=== PATIENT | male | born 1950 | race Caucasian/White ===

== ENCOUNTER 2021-03-17 20:27 | Observation (INO) | payer MEDICARE, SELFPAY ==
[2021-03-17] VITALS (12 sets, daily range): BP systolic 109–152; BP diastolic 56–78; PULSE 69–87; RESP 16–25; O2SAT 93–98
--- NOTE | 2021-03-17 20:43 | DI.RAD.S_ITS ---
PROCEDURE: XR CHEST 1V INDICATIONS: chest pain TECHNIQUE: One view of the chest was acquired. COMPARISON: None. FINDINGS: Surgical changes and devices: Sternotomy wires, presumed prior CABG.. Lungs and pleura: Lungs are clear. No pleural effusions or pneumothorax. Mediastinum: Mediastinal contours appear normal. Heart size is normal. Bones and chest wall: No suspicious bony lesions. Overlying soft tissues appear unremarkable. IMPRESSION: Mildly reduced inspiratory volume, prior sternotomy wires, presumed prior CABG, no definite acute disease. Dictated by: Richy Bran M.D. on 03/17/2021 at 21:30 Approved by: Richy Bran M.D. on 03/17/2021 at 21:31
[2021-03-17 20:57] LABS: Add Manual Diff / Slide Review NO; Basophils Absolute Auto 100 /uL (0-100); Basophils Percent Auto 0.5 % (0-2); Eosinophils Absolute Auto 200 /uL (0-450); Eosinophils Percent Auto 1.7 % (2-4); Hematocrit 45.6 % (41-53); Hemoglobin 15.4 g/dL (13.5-17.5); Lymphocytes Absolute Auto 2200 /uL (1100-4500); Lymphocytes Percent Auto 16.2 % (25-40); Mean Corpuscular HGB Conc 33.8 % (30-36); Mean Corpuscular Hemoglobin 31.2 PG (26-34); Mean Corpuscular Volume 92.3 fL (80-100); Monocytes Absolute Auto 1200 /uL (0-900); Monocytes Percent Auto 8.9 % (3-14); Neutrophils Absolute Auto 10000 /uL (1500-7000); Neutrophils Percent Auto 72.7 % (50-75); Platelet Count 226 X10^3/uL (150-400); Red Blood Cell Count 4.94 X10^6/uL (4.5-5.9); Red Cell Distribution Width 13.6 % (11.6-14.8); White Blood Cell Count 13.8 X10^3/uL (4.5-11.0)
[2021-03-17 21:02] LABS: Alanine Aminotransferase 31 IU/L (<50); Albumin 4.2 g/dL (3.5-5.0); Albumin Globulin Ratio 1.5 (1.0-2.8); Alkaline Phosphatase 83 U/L (38-126); Aspartate Aminotransferase 47 IU/L (17-59); BUN Creatinine Ratio 21.1 (6-22); Bilirubin Total 0.6 mg/dL (0.2-1.3); Blood Urea Nitrogen 20 mg/dL (9-20); Calcium 9.3 mg/dL (8.4-10.2); Carbon Dioxide 27 mmol/L (22-32); Chloride 105 mmol/L (98-107); Creatine Kinase 196 U/L (55-170); Estimated Glomerular Filt Rate > 60.0 mL/min (>60); Globulin 2.8 g/dL (1.7-4.1); Glucose 115 mg/dL (80-110); Lipase 74 U/L (23-300); Potassium 3.8 mmol/L (3.4-5.1); Sodium 140 mmol/L (137-145)
[2021-03-17 21:14] LABS: Troponin I < 0.012 ng/mL (0.01-0.034)
[2021-03-17 21:18] LABS: CKMB % Relative Index 2.3 % (1.5-5.0); Creatine Kinase MB 4.51 ng/mL (<2.37); HEMOLYSIS < 15 (0-50)
[2021-03-17] MEDS: NITROGLYCERIN 0.4 MG SL TAB SL ×3 (21:42→21:59)
--- NOTE | 2021-03-17 22:15 | ED.CHESTPAIN ---
HPI - Chest Pain General Chief Complaint: Chest Pain Stated Complaint: CHEST PAIN Time Seen by Provider: 03/17/21 20:47 Source: patient and family Mode of arrival: Ambulatory History of Present Illness HPI narrative: Patient is a 71-year-old male is here for chest discomfort. He states that his chest discomfort started at approximately 0500 hours in the afternoon. He was sitting on the couch when her. Earlier in the day he was having some jaw pain. He states he has never had discomfort like this in the past. He does describe it as a pressure. Does not get worse with palpation or movement however does get worse when he takes a deep breath. He also has upper back pain. He did take 2 full-strength aspirins prior to arrival. His of a prior history of an ASD repair. Has never had a heart attack before. Not on blood thinners. Related Data Home Medications Medication Instructions Recorded Confirmed [OXYCODONE] 5 mg PO PRN PRN #0 MDD 3 05/03/11 03/18/21 [COQ 10 ] 100 mg PO DAILY #0 10/27/12 03/18/21 aspirin 325 mg tablet 325 mg PO DAILY PRN #0 10/27/12 03/18/21 atorvastatin 20 mg tablet (Lipitor) 20 mg PO HS #0 10/27/12 03/18/21 ibuprofen 200 mg capsule 200 mg PO PRN PRN #0 10/27/12 03/18/21 gabapentin 300 mg capsule 300 mg PO QPM 03/18/21 03/18/21 lisinopril 10 mg tablet 10 mg PO DAILY 03/18/21 03/18/21 Allergies Allergy/AdvReac Type Severity Reaction Status Date / Time No Known Drug Allergies Allergy Verified 03/18/21 02:17 Review of Systems Constitutional Constitutional: Denies fever(s) and Denies headache(s) Eyes Eyes: Reports system reviewed and no additional complaints, except as documented ENT Ears, Nose, Mouth, and Throat: Denies headache(s) Cardiovascular Cardiovascular: Reports as per HPI Respiratory Respiratory: Reports as per HPI Gastrointestinal Gastrointestinal: Reports system reviewed and no additional complaints, except as documented Genitourinary Genitourinary: Reports system reviewed and no additional complaints, except as documented Musculoskeletal Musculoskeletal: Reports back pain Integumentary/Breasts Skin/Breast: Reports system reviewed and no additional complaints, except as documented Neurologic Neurologic: Denies headache(s) Psychiatric Psychiatric: Reports system reviewed and no additional complaints, except as documented Hematologic/Lymphatic On Anticoagulants: No Patient History Medical History Essential hypertension HLD (hyperlipidemia) Hyperlipidemia Opioid abuse, continuous use Surgical History History of lumbar laminectomy History of right knee joint replacement Hx of atrial septal defect repair Family History Mother Myocardial infarction Father Pancreatic cancer Social History household members: spouse Smoking Status: Never smoker alcohol intake: never Smoking Status: Never smoker Substance Use Type: does not use Exam Initial Vital Signs Initial Vital Signs: Vital Signs Pulse Rate 82 03/17/21 20:27 Respiratory Rate 16 03/17/21 20:27 Blood Pressure 152/72 H 03/17/21 20:27 Pulse Oximetry 98 03/17/21 20:27 Const General: cooperative and healthy appearing [facility] Head: normal to inspection and normocephalic Eyes General: appearance normal, both eyes and all related structures Neck Neck: normal visual inspection Resp Effort & Inspection: normal respiratory effort Auscultation: clear to auscultation bilaterally Cardio Rate: regular rate Rhythm: regular rhythm GI Inspection: normal to inspection Palpation: soft Back/Spine/Pelvis Thoracic/Lumbar Spine: No thoracic spinal tenderness Skin General: no rashes or lesions noted Neuro General: patient alert, patient awake, patient oriented x3 and moves all extremities Extrem General: normal to inspection and capillary refill normal Psych Appearance: grossly normal and well kempt Scores GCS Sloane coma scale eye opening: Spontaneous Sloane coma scale verbal response: Orientated Paragon coma scale motor response: Obey commands Sloane coma scale total score: 15 HEART Score Heart Score history: Slightly Suspicious Heart Score EKG: Non-Specific repolarization disturbance Heart Score Age: > or = 65 years old Heart Score risk factors: 1-2 risk factors Heart Score troponin: < or = to normal limit Heart Score Total: 4 Course Orders Ordered: ED Orders 03/17/21 20:11 Complete Blood Count AUTO DIFF Stat Comprehensive Metabolic Panel Stat Lipase Stat Troponin & CK Cardiac Panel Stat 03/17/21 20:43 XR chest 1V Stat EKG-12 Lead Stat 03/17/21 23:19 Troponin & CK Cardiac Panel Stat 03/18/21 00:20 COVID19 - ADMIT ([employer] swab/PCR) Stat Acetaminophen (Acetaminophen 325 Mg Tablet) 650 mg PO Q6HR PRN PRN Reason: Fever/Mild Pain (1-3) Aspirin (Aspirin Ec 81 Mg Tablet) 81 mg PO DAILY [facility] Atorvastatin Calcium (Atorvastatin 20 Mg Tablet) 80 mg PO BEDTIME [facility] Last Admin: 03/18/21 03:02 Dose: 80 mg Documented by: ZENAIDA Enoxaparin Sodium (Enoxaparin 40 Mg/0.4 Ml Syringe) 40 mg SUBCUT DAILY [facility] Gabapentin (Gabapentin 300 Mg Capsule) 300 mg PO BEDTIME [facility] [place] Sodium Chloride (Normal Saline 0.9%) 1,000 mls @ 100 mls/hr IV CONT [facility] Last Admin: 03/18/21 03:08 Dose: 100 mls/hr Documented by: ZENAIDA Lisinopril (Lisinopril 10 Mg Tablet) 10 mg PO DAILY [facility] Morphine Sulfate (Morphine 2 Mg/Ml Inj) 2 mg IV Q5MIN PRN PRN Reason: Chest Pain Naloxone HCl (Naloxone 0.4 Mg/Ml Vial) 0.2 mg IV Q2MIN PRN PRN Reason: Opiate Reversal Nitroglycerin (Nitroglycerin 0.4 Mg Sl Tab) 0.4 mg SL [id number] PRN PRN Reason: Chest Pain Ondansetron HCl (Ondansetron 4 Mg/2 Ml Inj) 4 mg IV Q8HR PRN PRN Reason: Nausea And Vomiting Oxycodone HCl (Oxycodone Ir 10 Mg Tablet) 10 mg PO Q6HR PRN PRN Reason: Pain, Severe (7-10) Discontinued Medications Gabapentin (Gabapentin 300 Mg Capsule) 300 mg PO QPM [facility] [place] Lisinopril (Lisinopril 20 Mg Tablet) 20 mg PO DAILY [facility] [place] Nitroglycerin (Nitroglycerin 0.4 Mg Sl Tab) 0.4 mg SL [id number] PRN PRN Reason: Chest Pain Last Admin: 03/17/21 21:59 Dose: 0.4 mg Documented by: Admin: 03/17/21 21:49 Dose: 0.4 mg Documented by: Admin: 03/17/21 21:42 Dose: 0.4 mg Documented by: KGALLAG Vital Signs Vital signs: Vital Signs - 8 hr 03/17/21 20:27 03/17/21 20:50 03/17/21 21:00 Pulse Rate 82 81 84 Respiratory Rate 16 18 22 Blood Pressure 152/72 H Pulse Oximetry 98 97 96 03/17/21 21:30 03/17/21 22:00 03/17/21 22:15 Pulse Rate 74 76 79 Respiratory Rate 21 18 25 H Blood Pressure 135/72 128/64 135/72 Pulse Oximetry 94 96 96 03/17/21 22:30 03/17/21 22:45 03/17/21 23:00 Pulse Rate 69 72 81 Respiratory Rate 22 21 23 Blood Pressure 128/71 126/69 136/78 Pulse Oximetry 97 96 96 03/17/21 23:15 03/17/21 23:30 03/17/21 23:45 Pulse Rate 81 84 87 Respiratory Rate 20 20 18 Blood Pressure 113/58 L 115/56 L 109/59 L Pulse Oximetry 94 95 93 03/18/21 00:00 03/18/21 00:15 Pulse Rate 90 90 Respiratory Rate 18 17 Blood Pressure 100/55 L 97/54 L Pulse Oximetry 93 93 MDM - Chest Pain Lab Data Attestation: I reviewed the patient's lab results. Result diagrams: 03/17/21 20:11 03/17/21 20:11 Labs: Lab Results 03/17/21 03/17/21 03/17/21 Range/Units 20:11 20:11 22:19 WBC 13.8 H (4.5-11.0) X10^3/uL RBC 4.94 (4.5-5.9) X10^6/uL Hgb 15.4 (13.5-17.5) g/dL Hct 45.6 (41-53) % MCV 92.3 (80-100) fL MCH 31.2 (26-34) PG MCHC 33.8 (30-36) % RDW 13.6 (11.6-14.8) % Plt Count 226 (150-400) X10^3/uL Neut % (Auto) 72.7 (50-75) % Lymph % (Auto) 16.2 L (25-40) % [place] % (Auto) 8.9 (3-14) % Eos % (Auto) 1.7 L (2-4) % Baso % (Auto) 0.5 (0-2) % Neut # (Auto) 68955 H (4585-1596) /uL Lymph # (Auto) 2200 (7580-8327) /uL [place] # (Auto) 1200 H (0-900) /uL Eos # (Auto) 200 (0-450) /uL Baso # (Auto) 100 (0-100) /uL Sodium 140 (137-145) mmol/L Potassium 3.8 (3.4-5.1) mmol/L Chloride 105 (98-107) mmol/L Carbon Dioxide 27 (22-32) mmol/L BUN 20 (9-20) mg/dL Creatinine 0.95 (0.66-1.25) mg/dL Estimated GFR > 60.0 (>60) mL/min BUN/Creatinine Ratio 21.1 (6-22) Glucose 115 H (80-110) mg/dL Hemoglobin A1c (4.0-6.0) % Calcium 9.3 (8.4-10.2) mg/dL Magnesium 2.0 (1.6-2.3) mg/dL Total Bilirubin 0.6 (0.2-1.3) mg/dL AST 47 (17-59) IU/L ALT 31 (<50) IU/L Alkaline Phosphatase 83 (38-126) U/L Total Creatine Kinase 196 H (55-170) U/L CK-MB (CK-2) 4.51 H (<2.37) ng/mL CK-MB (CK-2) Rel Index 2.3 (1.5-5.0) % Troponin I < 0.012 (0.01-0.034) ng/mL Total Protein 7.0 (6.3-8.2) g/dL Albumin 4.2 (3.5-5.0) g/dL Globulin 2.8 (1.7-4.1) g/dL Albumin/Globulin Ratio 1.5 (1.0-2.8) Lipase 74 (23-300) U/L Procalcitonin (<0.5) ng/mL SARS-CoV-2 (PCR) (Negative) 03/17/21 03/17/21 03/17/21 Range/Units 22:19 22:19 23:19 WBC (4.5-11.0) X10^3/uL RBC (4.5-5.9) X10^6/uL Hgb (13.5-17.5) g/dL Hct (41-53) % MCV (80-100) fL MCH (26-34) PG MCHC (30-36) % RDW (11.6-14.8) % Plt Count (150-400) X10^3/uL Neut % (Auto) (50-75) % Lymph % (Auto) (25-40) % [place]ilion % (Auto) (3-14) % Eos % (Auto) (2-4) % Baso % (Auto) (0-2) % Neut # (Auto) (5176-1084) /uL Lymph # (Auto) (1786-4096) /uL [place] # (Auto) (0-900) /uL Eos # (Auto) (0-450) /uL Baso # (Auto) (0-100) /uL Sodium (137-145) mmol/L Potassium (3.4-5.1) mmol/L Chloride (98-107) mmol/L Carbon Dioxide (22-32) mmol/L BUN (9-20) mg/dL Creatinine (0.66-1.25) mg/dL Estimated GFR (>60) mL/min BUN/Creatinine Ratio (6-22) Glucose (80-110) mg/dL Hemoglobin A1c 5.5 (4.0-6.0) % Calcium (8.4-10.2) mg/dL Magnesium (1.6-2.3) mg/dL Total Bilirubin (0.2-1.3) mg/dL AST (17-59) IU/L ALT (<50) IU/L Alkaline Phosphatase (38-126) U/L Total Creatine Kinase 157 (55-170) U/L CK-MB (CK-2) 3.48 H (<2.37) ng/mL CK-MB (CK-2) Rel Index 2.2 (1.5-5.0) % Troponin I < 0.012 (0.01-0.034) ng/mL Total Protein (6.3-8.2) g/dL Albumin (3.5-5.0) g/dL Globulin (1.7-4.1) g/dL Albumin/Globulin Ratio (1.0-2.8) Lipase (23-300) U/L Procalcitonin 0.07 (<0.5) ng/mL SARS-CoV-2 (PCR) (Negative) 03/18/21 Range/Units 00:20 WBC (4.5-11.0) X10^3/uL RBC (4.5-5.9) X10^6/uL Hgb (13.5-17.5) g/dL Hct (41-53) % MCV (80-100) fL MCH (26-34) PG MCHC (30-36) % RDW (11.6-14.8) % Plt Count (150-400) X10^3/uL Neut % (Auto) (50-75) % Lymph % (Auto) (25-40) % Vermilion % (Auto) (3-14) % Eos % (Auto) (2-4) % Baso % (Auto) (0-2) % Neut # (Auto) (9712-2041) /uL Lymph # (Auto) (0166-7295) /uL [place]ilion # (Auto) (0-900) /uL Eos # (Auto) (0-450) /uL Baso # (Auto) (0-100) /uL Sodium (137-145) mmol/L Potassium (3.4-5.1) mmol/L Chloride (98-107) mmol/L Carbon Dioxide (22-32) mmol/L BUN (9-20) mg/dL Creatinine (0.66-1.25) mg/dL Estimated GFR (>60) mL/min BUN/Creatinine Ratio (6-22) Glucose (80-110) mg/dL Hemoglobin A1c (4.0-6.0) % Calcium (8.4-10.2) mg/dL Magnesium (1.6-2.3) mg/dL Total Bilirubin (0.2-1.3) mg/dL AST (17-59) IU/L ALT (<50) IU/L Alkaline Phosphatase (38-126) U/L Total Creatine Kinase (55-170) U/L CK-MB (CK-2) (<2.37) ng/mL CK-MB (CK-2) Rel Index (1.5-5.0) % Troponin I (0.01-0.034) ng/mL Total Protein (6.3-8.2) g/dL Albumin (3.5-5.0) g/dL Globulin (1.7-4.1) g/dL Albumin/Globulin Ratio (1.0-2.8) Lipase (23-300) U/L Procalcitonin (<0.5) ng/mL SARS-CoV-2 (PCR) Negative (Negative) Imaging Data Chest x-ray: Radiologist's Impression: [address] [id number] ReportSigned Patient: Reynaldo Wu AMR#: [id number]: 1950cct:[id number]/Sex: 71 / MDate of Service: 03/17/21Loc: EDAccession Number: [id number] Procedure: XR chest 1V Ordering Provider: Reynaldo Mota D.O. PROCEDURE: XR CHEST 1V INDICATIONS: chest pain TECHNIQUE: One view of the chest was acquired. COMPARISON: None. FINDINGS: Surgical changes and devices: Sternotomy wires, presumed prior CABG.. Lungs and pleura: Lungs are clear. No pleural effusions or pneumothorax. Mediastinum: Mediastinal contours appear normal. Heart size is normal. Bones and chest wall: No suspicious bony lesions. Overlying soft tissues appear unremarkable. IMPRESSION: Mildly reduced inspiratory volume, prior sternotomy wires, presumed prior CABG, no definite acute disease. Dictated by: Richy Bran M.D. on 03/17/2021 at 21:30 Approved by: Richy Bran M.D. on 03/17/2021 at 21:31 ECG Data Attestation: I personally reviewed and interpreted this ECG as follows: Interpretation: Sinus rhythm Ventricular rate is 79 [place] Normal QRS Right bundle branch block QTC Nonspecific ST T wave changes MDM Narrative Medical decision making narrative: Chest x-ray shows no acute pathology. Has nonspecific changes on the EKG. Does have a leukocytosis but is afebrile. No indication for antibiotics here in the emergency department. Troponins negative x2. Does have a heart score of 4. Had a discussion with him regarding either discharge home and follow-up as an outpatient to obtain his stress test or be admitted to the hospital for further risk stratification. Patient opted to be admitted to the hospital. Discussed case with jatinder mcallister the night Hospital provider who will admit for further evaluation treatment. Discharge Plan Departure Patient Disposition: Admitted as Observation Clinical Impression: Chest pain Admit Date/Time: 03/18/21 00:24 Admit Provider: Yue Mcallister
[2021-03-17 23:37] LABS: Creatine Kinase 157 U/L (55-170)
[2021-03-17 23:50] LABS: Troponin I < 0.012 ng/mL (0.01-0.034)
[2021-03-17 23:53] LABS: CKMB % Relative Index 2.2 % (1.5-5.0); Creatine Kinase MB 3.48 ng/mL (<2.37)
[2021-03-18] VITALS (8 sets, daily range): BP systolic 97–151; BP diastolic 54–88; PULSE 80–92; RESP 16–21; TEMP 36–37.3; O2SAT 93–97; BMI 26.6
[2021-03-18 01:20] LABS: COVID19 - ADMIT (NP swab/PCR) Negative (Negative)
--- NOTE | 2021-03-18 01:31 | DI.CT.S_ITS ---
PROCEDURE: CT ANGIO CHEST ABDOMEN PELVIS INDICATIONS: hx asd, A/P pain dissection protocol TECHNIQUE: Precontrast 5 mm thick sections acquired from the lung apices to the iliac crests. After the administration of intravenous contrast, 2.5 mm thick sections again acquired from the lung apices to the iliac crests. Maximum intensity projection (MIP) oblique sagittal and coronal reformats were then acquired. For radiation dose reduction, the following was used: automated exposure control. COMPARISON: None. FINDINGS: CHEST: Lungs: Scattered subsegmental atelectasis and/or scarring. No focal consolidation. Pleura: No pleural effusions or pneumothorax. Heart: 5 mm pericardial effusion. Scattered coronary artery calcifications, moderate. Chest nodes: Normal. Thyroid gland: Normal. Aorta: Normal in size. Scattered vascular calcifications. No evidence of dissection. Pulmonary arteries: Normal. No discrete intraluminal filling defects. Esophagus: Normal. ABDOMEN: Liver: Subcentimeter hepatic foci are statistically cysts or hemangiomas, although technically too small to characterize accurately and therefore nonspecific. Gallbladder: Normal. Bile ducts: Normal. Pancreas: Normal. Spleen: Normal. Adrenals: Normal. Kidneys and ureters: Subcentimeter renal foci, statistically cysts, although technically too small to characterize accurately and therefore nonspecific. No hydronephrosis. Ureters appear decompressed. Stomach and duodenum: Normal. Bowel: Normal. Normal appendix. Other: No free fluid or air. Abdominal nodes: Normal. Aorta and IVC: No evidence of aortic dissection. No aneurysm identified. Scattered vascular calcifications are present. No evidence of periaortic hemorrhage. Ventral wall: Small fat containing periumbilical hernia. PELVIS: Bladder: Normal. Inguinal region: No hernia. Pelvic nodes: Normal. Bones: Multilevel degenerative endplate sclerosis and spurring. Diffuse facet arthropathy. Numerous scattered small Schmorl's nodes. Posterior spinal fixation hardware seen in lumbar spine. Mild anterior wedging of the midthoracic vertebral bodies, age indeterminate. IMPRESSION: No evidence of aortic dissection, aneurysm or periaortic hemorrhage. Moderate atherosclerotic disease. Small pericardial effusion Additional chronic and incidental findings as above. Findings concordant with preliminary study interpretation. Dictated by: Sebastian Ballard M.D. on 03/18/2021 at 8:07 Approved by: Sebastian Ballard M.D. on 03/18/2021 at 8:24
--- NOTE | 2021-03-18 01:39 | DI.ECHO.S_ITS ---
[facility]---------+ [facility] +---------+ : : [address] : : : : [id number] : : : : Phone: [phone] Echocardiogram Report + + :Name: SEE VARGHESE Study Date: 03/18/2021 Height: 70 in : :[facility] ReadingLocation: Weight: 186 lb: : Gender: Male BSA: 2.0 m2 : :: 1950 Age: 71 yrs BP: 97/54 mmHg: :Reason For Study: CHEST PAIN, HISTORY OF ASD CLOSURE : :Ordering Physician: MARC CUNNINGHAM Performed By: Kiera Torres : :Referring: NIHARIKA CUNNINGHAM : + + Interpretation Summary Normal left ventricle size with ejection fraction 65-70%. Mild to moderately dilated right ventricle with normal right ventricular systolic function. No signficant valvular abnormality. The interatrial septum appears intact with no evidence for an atrial septal defect. Comparison is made with the echocardiogram of 10/20/2017, there has been no significant change. Procedure: A two-dimensional transthoracic echocardiogram with color flow and Doppler was performed. The study quality was technically adequate. Comparison is made with the echocardiogram of 10/20/2017. The patient was in sinus rhythm with heart rates between 83-90 bpm during the exam. Left Ventricle: The left ventricle is normal in size and wall thickness. The ejection fraction is estimated to be 65-70%. There are no focal wall motion abnormalities. Right Ventricle: The right ventricle is mild to moderately dilated. The right ventricular systolic function is normal. Atria: The left atrial size is normal. Right atrial size is normal. History of ASD closure. The interatrial septum grossly appears intact with no obvious evidence for an atrial septal defect. Mitral Valve: The mitral valve is normal in structure and function. The mitral valve leaflets appear borderline thickened, but open well. There is trace mitral regurgitation. Aortic Valve: The aortic valve is trileaflet. The aortic valve opens well. There is no aortic valve stenosis. No aortic regurgitation is present. Tricuspid Valve: The tricuspid valve is normal in structure and function. There is mild tricuspid regurgitation. The right ventricular systolic pressure is estimated to be at least 26 mmHg based on an estimated right atrial pressure of 3 mm Hg. Pulmonic Valve: The pulmonic valve leaflets are thin and pliable; valve motion is normal. There is trace pulmonic regurgitation. Great Vessels: The aortic root is mildly dilated. The aortic arch is mildly enlarged. The IVC is of normal diameter and collapses greater than 50% with a sniff. This suggests a low right atrial pressure of 3 mm Hg. Pericardium/ Pleura There is no pericardial effusion. There is no pleural effusion. MMode/2D Measurements & Calculations LVIDd: 5.0 cm LVOT diam: 2.1 cm LVIDs: 3.2 cm Ao root diam: 3.9 cm FS: 35.5 % asc Aorta Diam: 3.7 cm IVSd: 0.86 cm LVPWd: 0.90 cm LV tavera. diameter/BSA (cm/m^2): 2.5 LV sys. diameter/BSA (cm/m^2): 1.6 LA A2 area: 18.0 cm2 RA long axis: 5.7 cm LA A4 area: 21.8 cm2 RA area: 20.7 cm2 LA length (vol): 6.3 cm RA vol: 64.3 ml LA vol: 52.9 ml RA : 31.8 ml/m2 LA vol index: 26.1 ml/m2 IVC diam: 1.7 cm TAPSE: 1.8 cm Doppler Measurements & Calculations Ao V2 max: 127.8 cm/sec LVOT Max Edilberto: 124.4 cm/sec Ao V2 mean: 96.5 cm/sec LV V1 max P.2 mmHg Ao max P.5 mmHg LV V1 VTI: 22.8 cm Ao mean P.1 mmHg BHUPINDER(I,D): 3.6 cm2 Ao V2 VTI: 22.4 cm BHUPINDER(V,D): 3.4 cm2 sev ratio: 1.0 BHUPINDER indexed to BSA (cm^2/m^2): 1.8 MV E max edilberto: 66.9 cm/sec TR max edilberto: 239.6 cm/sec MV A max edilberto: 71.8 cm/sec TR max P.0 mmHg MV E/A: 0.93 PA V2 max: 84.9 cm/sec Med Peak E' Edilberto: 7.4 cm/sec PA V2 mean: 61.6 cm/sec E/E' med: 9.0 PA mean P.7 mmHg Lat Peak E' Edilberto: 7.9 cm/sec PA pr(Accel): 25.9 mmHg E/E' lat: 8.5 E/e' average: 8.8 MV dec time: 0.17 sec SV(LVOT): 79.9 ml Electronically signed by: Keyla Gandara on Reading Physician:03/18/2021 10:49 AM
--- NOTE | 2021-03-18 01:51 | P.HP_ITS ---
History of Present Illness History of Present Illness Date Patient Seen: 03/18/21 Time Patient Seen: 01:15 Chief complaint: CHEST PAIN Narrative: Reynaldo Wu is a 71 y.o. male with hypertension, hyperlipidemia, a remote history of an ASD repair in 1985, and chronic back from lumbar surgeries in 2010 and 2012, presented with bilateral jaw pain he initially thought was due to dental crown work he is having followed but retrosternal chest pain. He is in between his tooth prep and setting of the permanent crown, so has been having jaw pain. He stated he was walking in his usual state of health and found it hard to breath without having chest pain, aggrevated by deep breathing. He took two full strength aspirins followed by ibuprofen. In the emergency department, he was administered 2 doses of nitro and states his chest pain while still present, improved. He denies headaches, lightheadedness, difficulty swallowing, shortness of breath, nausea or vomiting, dysurea, diarrhea, does have constipation from taking oxycodone, and has mild numbness and weakness of his left leg and foot he attributes to his back surgery. Two troponins drawn in the ED were negative, chest xray was negative with a finding of presence of sternotomy wires, EKG indicated a right bundle branch block that was also present in October 2012. Patient has low-grade temperature of 99.1?, blood pressure 151/88, heart rate 83, respiratory rate 16, oxygen saturation 97% on room air, he weighs 84.4 kg with a BMI of 26.6. Is a mildly elevated WBC at 13.8, the rest of the CBC is within normal limits, glucose mildly elevated at 115 with an A1c of 5.5, liver enzymes within normal limits, COVID-19 PCR is negative. Procalcitonin pending. Patient History Medical History Essential hypertension HLD (hyperlipidemia) Hyperlipidemia Opioid abuse, continuous use Surgical History History of lumbar laminectomy History of right knee joint replacement Hx of atrial septal defect repair Family & Social History Family History Mother Myocardial infarction Father Pancreatic cancer Social History: household members spouse Prior Living Arrangements House Safety & Behavioral: Feels Safe in Current Yes Environment Been Physically Hurt or No Threatened By a Person Suicidal Ideation Description None Suicide Plan Description No Plan Tobacco & Substance use: Smoking Status Never smoker alcohol intake never Substance Use Type does not use Meds Home Medications and Allergies Home Medications Medication Instructions Recorded Confirmed Type [OXYCODONE] 5 mg PO PRN PRN #0 MDD 3 05/03/11 03/18/21 History [COQ 10 ] 100 mg PO DAILY #0 10/27/12 03/18/21 History aspirin 325 mg tablet 325 mg PO DAILY PRN #0 10/27/12 03/18/21 History atorvastatin 20 mg tablet (Lipitor) 20 mg PO HS #0 10/27/12 03/18/21 History ibuprofen 200 mg capsule 200 mg PO PRN PRN #0 10/27/12 03/18/21 History gabapentin 300 mg capsule 300 mg PO QPM 03/18/21 03/18/21 History lisinopril 10 mg tablet 10 mg PO DAILY 03/18/21 03/18/21 History Allergies Allergy/AdvReac Type Severity Reaction Status Date / Time No Known Drug Allergies Allergy Verified 03/18/21 02:17 Review of Systems Review of Systems ROS: Yes All systems reviewed with the patient and are negative except as otherwise documented Exam Vital Signs (past 8 hours): - 03/17/21 20:27 03/17/21 20:50 03/17/21 21:00 Temperature Pulse Rate 82 81 84 Respiratory Rate 16 18 22 Blood Pressure 152/72 H Pulse Oximetry 98 97 96 03/17/21 21:30 03/17/21 22:00 03/17/21 22:15 Temperature Pulse Rate 74 76 79 Respiratory Rate 21 18 25 H Blood Pressure 135/72 128/64 135/72 Pulse Oximetry 94 96 96 03/17/21 22:30 03/17/21 22:45 03/17/21 23:00 Temperature Pulse Rate 69 72 81 Respiratory Rate 22 21 23 Blood Pressure 128/71 126/69 136/78 Pulse Oximetry 97 96 96 03/17/21 23:15 03/17/21 23:30 03/17/21 23:45 Temperature Pulse Rate 81 84 87 Respiratory Rate 20 20 18 Blood Pressure 113/58 L 115/56 L 109/59 L Pulse Oximetry 94 95 93 03/18/21 00:00 03/18/21 00:15 03/18/21 00:30 Temperature Pulse Rate 90 90 80 Respiratory Rate 18 17 21 Blood Pressure 100/55 L 97/54 L 120/69 Pulse Oximetry 93 93 94 03/18/21 00:50 Temperature 99.1 F Pulse Rate 83 Respiratory Rate 16 Blood Pressure 151/88 H Pulse Oximetry 97 Oxygen Delivery Method Room Air Oxygen Flow Rate 0 Narrative Exam Narrative: Gen: Alert, oriented, well-developed 71 y.o. male, slightly uncomfortable appearing HEENT: normocephalic, atraumatic, conjunctiva clear, sclera non-icteric, oral mucosa pink and moist Neck: supple, full ROM, no JVD, trachea is midline Resp: Lungs CTA, non-labored breathing CV: RRR, no murmur or rubs Abd: soft, non-tender, normoactive BTs Skin: [place] complected, no lesions or rashes, dry and intact Neuro: Alert and oriented X 4 w/no focal deficits. Speech clear and coherent. Extremities: moves all 4 extremities, is ambulatory, negative Katharine?s sign Psyche: normal mood and affect. Objective Labs Result Diagrams: 03/17/21 20:11 03/17/21 20:11 Labs: Laboratory Results - last 24 hr 03/17/21 03/17/21 03/17/21 20:11 20:11 23:19 WBC 13.8 H RBC 4.94 Hgb 15.4 Hct 45.6 MCV 92.3 MCH 31.2 MCHC 33.8 RDW 13.6 Plt Count 226 Neut % (Auto) 72.7 Lymph % (Auto) 16.2 L [place] % (Auto) 8.9 Eos % (Auto) 1.7 L Baso % (Auto) 0.5 Neut # (Auto) 50824 H Lymph # (Auto) 2200 [place] # (Auto) 1200 H Eos # (Auto) 200 Baso # (Auto) 100 Sodium 140 Potassium 3.8 Chloride 105 Carbon Dioxide 27 BUN 20 Creatinine 0.95 Estimated GFR > 60.0 BUN/Creatinine Ratio 21.1 Glucose 115 H Calcium 9.3 Total Bilirubin 0.6 AST 47 ALT 31 Alkaline Phosphatase 83 Total Creatine Kinase 196 H 157 CK-MB (CK-2) 4.51 H 3.48 H CK-MB (CK-2) Rel Index 2.3 2.2 Troponin I < 0.012 < 0.012 Total Protein 7.0 Albumin 4.2 Globulin 2.8 Albumin/Globulin Ratio 1.5 Lipase 74 SARS-CoV-2 (PCR) 03/18/21 00:20 WBC RBC Hgb Hct MCV MCH MCHC RDW Plt Count Neut % (Auto) Lymph % (Auto) [place] % (Auto) Eos % (Auto) Baso % (Auto) Neut # (Auto) Lymph # (Auto) [place] # (Auto) Eos # (Auto) Baso # (Auto) Sodium Potassium Chloride Carbon Dioxide BUN Creatinine Estimated GFR BUN/Creatinine Ratio Glucose Calcium Total Bilirubin AST ALT Alkaline Phosphatase Total Creatine Kinase CK-MB (CK-2) CK-MB (CK-2) Rel Index Troponin I Total Protein Albumin Globulin Albumin/Globulin Ratio Lipase SARS-CoV-2 (PCR) Negative Assessment & Plan Assessment & Plan narrative: Reynaldo Wu is placed into observation overnight in order to undergo further evaluation of his chest pain. Retrosternal chest pain r/o ACS, acute, present on admission * CT chest, abdomen and pelvis given his chest pain appears to be atypical of ACS, to rule out dissection was negative for an acute process * Echo in am * Pharmacological stress test * Start ASA 81 mg * Received nitro X 3 in the ED * EKG indicated current and prior right bundle * Trend troponin X 1 Hypertension * Start/continue lisinopril 10 mg * Consider addition of a beta vee HLD * Lipid panel, pending * Increase Aorvastatin to 80 mg po at bedtime Risk stratification * Fasting lipid panel at 0500 labs * A1c 5.5%, not diabetic VTE Prophylaxis: Wells risk score 0 Enoxaparin 40 mg subQ once daily Patient is placed into observation as his stay is not expected to exceed 2 midnights. FEN: IV fluids: iv saline lock, diet: NPO until stress test, then heart healthy diet, labs: CBC, BMP, liver enzynes, Mag, Code status: as discussed with the patient who identifies spouse [] as their surrogate and POA. I have utilized all available resources (patient, family member, internal and external medical records) at the time of admission to identify the patient?s current home medications that should be continued or held. COVID-19 COVID-19 status: Negative Result date/Date tested (Pos, Neg/Pending): 03/18/21 Scores Wells' Criteria for PE Clinical signs and symptoms of DVT: No PE is #1 Dx or equally likely: No Heart rate > 100: No Immobilization at least 3 days or surg in previous 4 weeks: No History of PE or DVT: No Hemoptysis: No Malignancy w/Treatment within 6 months or palliative: No Wells' PE Score total: 0 Quality VTE Deep Vein Thrombosis/Pulmonary Embolism Present on Admission: No MIPS - Admit I confirm the patient?s Advance Care Plan is present, Code status is documented, Surrogate decision maker is in patient?s record [If Yes, STOP here]: Yes MIPS - DC The patient has current or prior documentation of left ventricular ejection fraction (LVEF) less than 40%, or moderate or severely depressed left ventricular systolic function.: No
[2021-03-18 02:39] LABS: Hemoglobin A1C% w Est Avg Glu 5.5 % (4.0-6.0)
[2021-03-18] MEDS: ATORVASTATIN 20 MG TABLET 80 MG PO (03:02)
[2021-03-18] MEDS: SODIUM CHLORIDE 0.9% 1,000 ML 100 ML IV (03:08)
--- NOTE | 2021-03-18 03:22 | PC.NURSE ---
0050 Patient admitted to room 218, accompanied by his Enedina. oreinted to his room showed how to use his call light, TV & bed controls. Instructed to call for assistance if he will get OOB to the BR, call light within reach. Will monitor & cont. POC.
[2021-03-18 03:40] LABS: Procalcitonin 0.07 ng/mL (<0.5)
[2021-03-18] MEDS: NITROGLYCERIN 0.4 MG SL TAB SL (05:56)
[2021-03-18] MEDS: MORPHINE 2 MG/ML INJ IV ×2 (06:09→08:56)
--- NOTE | 2021-03-18 06:12 | PC.NURSE ---
ARNP. Ballard notified pt's. CP up to 01/31. Ordered to give 1 dose of NTG. Pt's. reported it did not help the doses I got from ER. When re-assessed his pain level up to 03/02, rechecked B/P 121/67 HR. 99. FERNIE Ballard also order to give Morphine 2 mg. admin. IVP. Will monitor.
[2021-03-18 06:18] LABS: Alanine Aminotransferase 27 IU/L (<50); Albumin 3.8 g/dL (3.5-5.0); Albumin Globulin Ratio 1.4 (1.0-2.8); Alkaline Phosphatase 78 U/L (38-126); Aspartate Aminotransferase 39 IU/L (17-59); Bilirubin Total 0.9 mg/dL (0.2-1.3); Cholesterol 167 mg/dL (140-199); Globulin 2.7 g/dL (1.7-4.1); HDL Cholesterol 61 mg/dL (40-60); HEMOLYSIS < 15 (0-50); LDL Cholesterol Calculated 95 mg/dL (<100); Total Protein 6.5 g/dL (6.3-8.2); Triglycerides 57 mg/dL (35-150)
[2021-03-18 06:30] LABS: Troponin I < 0.012 ng/mL (0.01-0.034)
--- NOTE | 2021-03-18 09:03 | PC.NURSE ---
Addendum entered by Nevin Briceno R.N. 03/18/21 12:48: Went over dc medications and instructions with patient,questions answered. Patient had all belongings. Original Note: Patient c/o mid sternal chest pain 5/10, no radiation of pain, no shortness of breath, patient reports pain increases with deep breaths. Given 2mg IVP morphine. Dr Green aware, no new orders received. Patient remains NPO for possible stress test.
--- NOTE | 2021-03-18 09:41 | CM.DANOTE ---
DCP/Assessment: Reviewed chart. Patient is a 71yr old male admitted to [facility] with chest pain. PCP is Deborah Soares in [place]. Primary payor is 1)[facility]. Met with patient this AM. He reports that he is completely I in all ADL's. Patient pending ECHO results. Anticipate d/c within the next 24hrs. Patient currently with no anticipated d/c planning needs. P: Home when stable. SASHA Aguilera Discharge Planning/Care Management Advanced directive, confirm from FAMILY Start: 03/18/21 01:34 Freq: Q24H Status: Active Protocol: Document 03/18/21 01:35 MP (Rec: 03/18/21 03:20 MP [id number]) Advance Directive, confirm on record Time 01:35 Person contacted Patient Copy received No Copy received No Advanced directive available on record No CM Discharge Assessment Start: 03/18/21 09:38 Freq: Status: Active Protocol: Document 03/18/21 09:38 KJS (Rec: 03/18/21 09:41 KJS [id number]) Discharge Planning Assessment Assigned Data Librarian SASHA Aguilera Contact Information Catrachito Wu (spouse) # [phone] Advance Directives? Yes Advance Directives on File No History Provided By Patient,Medical Record Prior Living Arrangements House Household Members spouse Type of transporation used prior to Drives own vehicle admit Independent with ADL's Yes Is patient alert and oriented? Yes Caregiver for Another No Barriers to Discharge No Discharge Plan Home Transportation Arrangement Family to provide transport. Referrals Initiated Other Additional Comment Pending ECHO results. Whiteboard Updated in Patient Room with Yes name and ext. # of Data Librarian Review Status In Process Next Review Type Continued Stay Review
[2021-03-18] MEDS: COLCHICINE 0.6 MG TABLET PO (09:45)
[2021-03-18] MEDS: IBUPROFEN 400 MG TABLET 800 MG PO (09:46)
[2021-03-18] MEDS: lisinopriL 10 MG TABLET PO (09:46)
[2021-03-18 09:47] LABS: C-Reactive Protein Quant 2.3 mg/dL (<1.0)
[2021-03-18] MEDS: ENOXAPARIN 40 MG/0.4 ML SYRINGE SUBCUT (09:47)
--- NOTE | 2021-03-18 11:55 | PM.DS.1 ---
History of Present Illness History of Present Illness Date Patient Seen: 03/18/21 Time Patient Seen: 11:55 Chief complaint: CHEST PAIN Narrative: Per FERNIE Hutchinson: Reynaldo Wu is a 71 y.o. male with hypertension, hyperlipidemia, a remote history of an ASD repair in 1985, and chronic back from lumbar surgeries in 2010 and 2012, presented with bilateral jaw pain he initially thought was due to dental crown work he is having followed but retrosternal chest pain. He is in between his tooth prep and setting of the permanent crown, so has been having jaw pain. He stated he was walking in his usual state of health and found it hard to breath without having chest pain, aggrevated by deep breathing. He took two full strength aspirins followed by ibuprofen. In the emergency department, he was administered 2 doses of nitro and states his chest pain while still present, improved. He denies headaches, lightheadedness, difficulty swallowing, shortness of breath, nausea or vomiting, dysurea, diarrhea, does have constipation from taking oxycodone, and has mild numbness and weakness of his left leg and foot he attributes to his back surgery. Two troponins drawn in the ED were negative, chest xray was negative with a finding of presence of sternotomy wires, EKG indicated a right bundle branch block that was also present in October 2012. Patient has low-grade temperature of 99.1?, blood pressure 151/88, heart rate 83, respiratory rate 16, oxygen saturation 97% on room air, he weighs 84.4 kg with a BMI of 26.6. Is a mildly elevated WBC at 13.8, the rest of the CBC is within normal limits, glucose mildly elevated at 115 with an A1c of 5.5, liver enzymes within normal limits, COVID-19 PCR is negative. Procalcitonin pending. Discharge Providers Provider Date of admission: 03/18/21 00:24 Discharge Date: 03/18/21 Primary care physician: Jaclyn Reardon PA-C Discharge provider: Victor Manuel Green DO Summary Hospital Course Discharge Diagnosis: 1. Acute pericarditis, present on admission 2. HTN, choronic 3. HLD, chronic Hospital Course: This is a 71-year-old male with a past medical history of hypertension hyperlipidemia as well as chronic back pain who was admitted to the hospital with substernal chest pain. Based upon the pleuritic nature of his pain (worsened with inspiration, improved with leaning forward and crossing his arms in front), and initial imaging including chest x-ray and initial CT angio which was negative for PE but did show a small pericardial effusion, he most likely has an acute pericarditis. He was initially admitted with plans for echocardiogram and stress testing. Echocardiogram showed a normal EF with no pericardial effusion, and no pericardial enhancement but this does not rule out the diagnosis. His pain improved with ibuprofen therapy and he was started on colchicine. CRP was elevated at 2.3. Did discuss the case with Cardiology who recommended treatment for pericarditis, and there was no need for stress testing at this time. His EKG did not show any ST elevations or depressions, but he does have an old right bundle branch block which appeared grossly unchanged. His troponins were negative. I recommend that he follow-up with his primary care provider this week to check on his symptoms. He was recommended to continue ibuprofen 800 mg every 8 hours for 1-2 weeks or until his pain resolves, and to continue colchicine 0.6 mg twice a day for 90 days. Exam Vital Signs (past 8 hours): - 03/18/21 05:33 03/18/21 07:18 Temperature 98.7 F Pulse Rate 92 H 88 Respiratory Rate 16 16 Blood Pressure 134/75 125/73 Pulse Oximetry 93 93 Oxygen Delivery Method Room Air Oxygen Flow Rate 0 Narrative Exam Narrative: Gen: Alert, oriented, well-developed 71 y.o. male, no acute distress. HEENT: normocephalic, atraumatic, conjunctiva clear, sclera non-icteric, oral mucosa pink and moist Neck: supple, full ROM, no JVD, trachea is midline Resp: Lungs CTA, non-labored breathing CV: RRR, no murmur or rubs Abd: soft, non-tender, normoactive BTs Skin: [place] complected, no lesions or rashes, dry and intact Neuro: Alert and oriented X 4 w/no focal deficits. Speech clear and coherent. Extremities: moves all 4 extremities, is ambulatory, negative Katharine?s sign Psyche: normal mood and affect. Objective Labs Result Diagrams: 03/17/21 20:11 03/17/21 20:11 Labs: Laboratory Results - last 24 hr 03/17/21 03/17/21 03/17/21 20:11 20:11 22:19 WBC 13.8 H RBC 4.94 Hgb 15.4 Hct 45.6 MCV 92.3 MCH 31.2 MCHC 33.8 RDW 13.6 Plt Count 226 Neut % (Auto) 72.7 Lymph % (Auto) 16.2 L [place] % (Auto) 8.9 Eos % (Auto) 1.7 L Baso % (Auto) 0.5 Neut # (Auto) 89338 H Lymph # (Auto) 2200 [place] # (Auto) 1200 H Eos # (Auto) 200 Baso # (Auto) 100 Sodium 140 Potassium 3.8 Chloride 105 Carbon Dioxide 27 BUN 20 Creatinine 0.95 Estimated GFR > 60.0 BUN/Creatinine Ratio 21.1 Glucose 115 H Hemoglobin A1c Calcium 9.3 Magnesium 2.0 Total Bilirubin 0.6 Conjugated Bilirubin Unconjugated Bilirubin AST 47 ALT 31 Alkaline Phosphatase 83 Total Creatine Kinase 196 H CK-MB (CK-2) 4.51 H CK-MB (CK-2) Rel Index 2.3 Troponin I < 0.012 C-Reactive Protein Total Protein 7.0 Albumin 4.2 Globulin 2.8 Albumin/Globulin Ratio 1.5 Triglycerides Cholesterol LDL Cholesterol, Calc HDL Cholesterol Lipase 74 Procalcitonin SARS-CoV-2 (PCR) 03/17/21 03/17/21 03/17/21 22:19 22:19 23:19 WBC RBC Hgb Hct MCV MCH MCHC RDW Plt Count Neut % (Auto) Lymph % (Auto) [place] % (Auto) Eos % (Auto) Baso % (Auto) Neut # (Auto) Lymph # (Auto) [place] # (Auto) Eos # (Auto) Baso # (Auto) Sodium Potassium Chloride Carbon Dioxide BUN Creatinine Estimated GFR BUN/Creatinine Ratio Glucose Hemoglobin A1c 5.5 Calcium Magnesium Total Bilirubin Conjugated Bilirubin Unconjugated Bilirubin AST ALT Alkaline Phosphatase Total Creatine Kinase 157 CK-MB (CK-2) 3.48 H CK-MB (CK-2) Rel Index 2.2 Troponin I < 0.012 C-Reactive Protein Total Protein Albumin Globulin Albumin/Globulin Ratio Triglycerides Cholesterol LDL Cholesterol, Calc HDL Cholesterol Lipase Procalcitonin 0.07 SARS-CoV-2 (PCR) 03/18/21 03/18/21 03/18/21 00:20 05:06 05:07 WBC RBC Hgb Hct MCV MCH MCHC RDW Plt Count Neut % (Auto) Lymph % (Auto) [place] % (Auto) Eos % (Auto) Baso % (Auto) Neut # (Auto) Lymph # (Auto) [place] # (Auto) Eos # (Auto) Baso # (Auto) Sodium Potassium Chloride Carbon Dioxide BUN Creatinine Estimated GFR BUN/Creatinine Ratio Glucose Hemoglobin A1c Calcium Magnesium 2.0 Total Bilirubin Conjugated Bilirubin Unconjugated Bilirubin AST ALT Alkaline Phosphatase Total Creatine Kinase CK-MB (CK-2) CK-MB (CK-2) Rel Index Troponin I C-Reactive Protein 2.3 H Total Protein Albumin Globulin Albumin/Globulin Ratio Triglycerides Cholesterol LDL Cholesterol, Calc HDL Cholesterol Lipase Procalcitonin SARS-CoV-2 (PCR) Negative 03/18/21 05:07 WBC RBC Hgb Hct MCV MCH MCHC RDW Plt Count Neut % (Auto) Lymph % (Auto) [place] % (Auto) Eos % (Auto) Baso % (Auto) Neut # (Auto) Lymph # (Auto) [place] # (Auto) Eos # (Auto) Baso # (Auto) Sodium Potassium Chloride Carbon Dioxide BUN Creatinine Estimated GFR BUN/Creatinine Ratio Glucose Hemoglobin A1c Calcium Magnesium Total Bilirubin 0.9 Conjugated Bilirubin 0.0 Unconjugated Bilirubin 1.0 AST 39 ALT 27 Alkaline Phosphatase 78 Total Creatine Kinase CK-MB (CK-2) CK-MB (CK-2) Rel Index Troponin I < 0.012 C-Reactive Protein Total Protein 6.5 Albumin 3.8 Globulin 2.7 Albumin/Globulin Ratio 1.4 Triglycerides 57 Cholesterol 167 LDL Cholesterol, Calc 95 HDL Cholesterol 61 H Lipase Procalcitonin SARS-CoV-2 (PCR) [facility] Medical History Essential hypertension HLD (hyperlipidemia) Hyperlipidemia Opioid abuse, continuous use Surgical History History of lumbar laminectomy History of right knee joint replacement Hx of atrial septal defect repair Family History Mother Myocardial infarction Father Pancreatic cancer Social History household members: spouse Smoking Status: Never smoker alcohol intake: never Discharge Plan Discharge Plan Patient Disposition: Home Provider Discharge Comment: You were admitted to the hospital with chest pain, likely secondary to pericarditis. Treatment is with ibuprofen for 1-2 weeks, 800 mg (4 tabs) three times a day. This can be stopped if your pain is resolved. Colchicine is a medication taken twice daily for 3 months. Please avoid strenuous physical activity for the next 2 weeks, and proceed cautiously after. Please follow up with your PCP as previously scheduled or sooner if pain persists. Discharge orders & Medications Prescriptions: New colchicine 0.6 mg tablet 0.6 mg PO BID 90 Days Qty: 180 RF: 0 Continued [OXYCODONE] tablet 5 mg PO PRN MDD 3 PRN (Reason: Back Pain) Qty: 0 RF: 0 atorvastatin [Lipitor] 20 MG tablet 20 mg PO HS Qty: 0 RF: 0 [COQ 10 ] capsule 100 mg PO DAILY Qty: 0 RF: 0 lisinopril 10 mg tablet 10 mg PO DAILY RF: 0 gabapentin 300 mg capsule 300 mg PO QPM RF: 0 Changed ibuprofen 200 MG capsule 800 mg PO Q8H 14 Days Qty: 90 RF: 0 Discontinued aspirin 325 MG tablet 325 mg PO DAILY PRN (Reason: Chest Pain) Qty: 0 RF: 0 Follow up/Referrals: Jaclyn Reardon PA-C [Primary Care Provider] - Diet/Activity/Treatments Diet: Diet as Tolerated Activity: No strenouous physical activity Visit Report/Discharge Packet Instructions: DI for Pericarditis Discharge Data Primary Care Provider: Jaclyn Reardon Attending Provider: Yue Ballard VTE Deep Vein Thrombosis/Pulmonary Embolism Present on Admission: No
== END 2021-03-18 12:48 | disposition home or self-care (01) ==
LOC: ED 03-18 00:24 → AC 03-18 00:25
PROVIDERS: Internal Medicine; Admitting Provider Nurse Practitioner Family; Emergency Provider Emergency Medicine; PCP Physician Assistant; Referring Provider Emergency Medicine; Visit Provider Nurse Practitioner Family
DX: I30.9 Acute pericarditis, unspecified (principal); I10 Essential (primary) hypertension; E78.5 Hyperlipidemia, unspecified; Z20.822 Contact with and (suspected) exposure to COVID-19
CPT/HCPCS: 36415; 71045; 71275; 74174; 80053; 80061; 80076; 82550; 82553; 83036; 83690; 83735; 84145; 84484; 85025; 86140; 87635; 93005; 93010; 93306; 96361; 96372; 96374; 96376; 99284; C9803; G0378; J1650; J2270; Q9967

== ENCOUNTER 2021-12-26 10:18 | Emergency (ER) | payer MEDICARE, SELFPAY ==
[2021-03-18 00:50] VITALS: BMI 26.6
[2021-12-26] VITALS (14 sets, daily range): BP systolic 111–166; BP diastolic 65–84; PULSE 59–88; RESP 15–24; TEMP 36.8; O2SAT 95–98; BMI 28.8
--- NOTE | 2021-12-26 10:33 | DI.RAD.S_ITS ---
PROCEDURE: XR CHEST 1V INDICATIONS: chest pain TECHNIQUE: One view of the chest was acquired. COMPARISON: [facility], CR, XR CHEST 1V, 03/17/2021, 20:59. FINDINGS: Surgical changes and devices: Median sternotomy wires are present and appear intact. Lungs and pleura: Lungs are clear. No pleural effusions or pneumothorax. Mediastinum: Mediastinal contours appear normal. Heart size is normal. Bones and chest wall: No suspicious bony lesions. Overlying soft tissues appear unremarkable. IMPRESSION: Stable radiographic evaluation of the chest without acute cardiopulmonary abnormalities or focal airspace disease. Dictated by: Ed Ramsey M.D. on 12/26/2021 at 11:18 Approved by: Ed Ramsey M.D. on 12/26/2021 at 11:19
[2021-12-26 10:46] LABS: Prothrombin Time 11.1 SECONDS (10.1-12.7)
[2021-12-26 10:48] LABS: PTT Partial Thromboplastin Tim 31 SECONDS (26.4-36.2)
[2021-12-26 10:49] LABS: Add Manual Diff / Slide Review NO; Basophils Absolute Auto 0 /uL (0-100); Basophils Percent Auto 0.4 % (0-2); Eosinophils Absolute Auto 0 /uL (0-450); Eosinophils Percent Auto 0.3 % (2-4); Hematocrit 45.9 % (41-53); Hemoglobin 15.6 g/dL (13.5-17.5); Lymphocytes Absolute Auto 1300 /uL (1100-4500); Lymphocytes Percent Auto 12.7 % (25-40); Mean Corpuscular HGB Conc 34.1 % (30-36); Mean Corpuscular Volume 91.1 fL (80-100); Monocytes Absolute Auto 800 /uL (0-900); Monocytes Percent Auto 8.5 % (3-14); Neutrophils Absolute Auto 7800 /uL (1500-7000); Neutrophils Percent Auto 78.1 % (50-75); Platelet Count 215 X10^3/uL (150-400); Red Blood Cell Count 5.03 X10^6/uL (4.5-5.9); Red Cell Distribution Width 13.8 % (11.6-14.8)
[2021-12-26 10:51] LABS: Alanine Aminotransferase 25 IU/L (<50); Albumin 4.5 g/dL (3.5-5.0); Albumin Globulin Ratio 1.5 (1.0-2.8); Alkaline Phosphatase 98 U/L (38-126); Aspartate Aminotransferase 36 IU/L (17-59); BUN Creatinine Ratio 17.6 (6-22); Bilirubin Total 1.1 mg/dL (0.2-1.3); Blood Urea Nitrogen 15 mg/dL (9-20); Calcium 8.9 mg/dL (8.4-10.2); Carbon Dioxide 24 mmol/L (22-32); Chloride 108 mmol/L (98-107); Creatine Kinase 79 U/L (55-170); Estimated Glomerular Filt Rate > 60 mL/min (>60); Glucose 105 mg/dL (80-110); HEMOLYSIS < 15 (0-50); Lipase 71 U/L (23-300); Magnesium 2.1 mg/dL (1.6-2.3); Potassium 4.2 mmol/L (3.4-5.1); Sodium 141 mmol/L (137-145); Total Protein 7.5 g/dL (6.3-8.2)
[2021-12-26 11:01] LABS: Troponin I < 0.012 ng/mL (0.01-0.034)
--- NOTE | 2021-12-26 12:27 | ED_ITS ---
HPI - Chest Pain General Chief Complaint: Chest Pain Stated Complaint: Chest pain Time Seen by Provider: 12/26/21 11:14 Source: patient Mode of arrival: Ambulatory Limitations: no limitations History of Present Illness HPI narrative: Patient is a 71-year-old male with history of hypertension hyperlipidemia remote history of ASD repair in 1985 had pericarditis in 2020 presenting today with chest heaviness. He says he was out about yesterday when he started to notice some chest heaviness that radiated through to his back. He immediately took 800 mg of ibuprofen like he did for pericarditis and seem to help. He was unable to sleep last night when he rolled over it was a little bit worse. It is not worse with breathing or movement. He denies any shortness of breath. He has no palpitations. He says this feels like it did previously and thinks it might be pericarditis. He has no known coronary artery disease. He said he did follow- up with supervisor brine as who did no further testing. Related Data Home Medications Medication Instructions Recorded Confirmed [OXYCODONE] 5 mg PO PRN PRN #0 MDD 3 05/03/11 03/18/21 [COQ 10 ] 100 mg PO DAILY #0 10/27/12 03/18/21 atorvastatin 20 mg tablet (Lipitor) 20 mg PO HS #0 10/27/12 03/18/21 gabapentin 300 mg capsule 300 mg PO QPM 03/18/21 03/18/21 lisinopril 10 mg tablet 10 mg PO DAILY 03/18/21 03/18/21 Previous Rx's Medication Instructions Recorded ibuprofen 200 mg capsule 800 mg PO Q8H 14 Days #90 cap 03/18/21 Allergies Allergy/AdvReac Type Severity Reaction Status Date / Time No Known Drug Allergies Allergy Verified 12/26/21 10:33 Review of Systems Review of Systems Narrative: GENERAL: Denies chills, fatigue, malaise, fever, sweats, travel HEENT: Denies sinus pain, ear pain, sore throat, difficulty swallowing, neck pain RESPIRATORY: Denies dyspnea, cough, wheezing, hemoptysis, sputum. CARDIOVASCULAR: See HPI GASTROINTESTINAL: Denies nausea, vomiting, abdominal pain, diarrhea, constipation, melena. : Denies dysuria, frequency, incontinence, hematuria, urinary retention, flank pain. MUSCULOSKELETAL: Denies weakness, joint pain, or bony pain SKIN: No rash, no erythema, no pruritus NEUROLOGIC: Denies weakness, dizziness, headache, numbness, change in speech, confusion PSYCHIATRIC: No concerning psychosocial issues. 12 point review of systems is negative except for those stated above and HPI Patient History Medical History Essential hypertension HLD (hyperlipidemia) Hyperlipidemia Opioid abuse, continuous use Surgical History History of lumbar laminectomy History of right knee joint replacement Hx of atrial septal defect repair Family History Mother Myocardial infarction Father Pancreatic cancer Social History household members: spouse Smoking Status: Never smoker alcohol intake: never Smoking Status: Never smoker alcohol intake frequency: holidays/special occasions only Substance Use Type: does not use Exam Initial Vital Signs Initial Vital Signs: Vital Signs Temperature 98.2 F 12/26/21 10:20 Pulse Rate 79 12/26/21 10:20 Respiratory Rate 15 12/26/21 10:20 Blood Pressure 156/72 H 12/26/21 10:20 Pulse Oximetry 98 12/26/21 10:20 GENERAL: Very pleasant 71-year-old male in no acute distress. HEENT: Head atraumatic,EOMI, pupils reactive, face symmetric, moist mucous membranes CARDIOVASCULAR: Regular rate and rhythm without murmurs, rubs or gallops. Pain is not reproducible palpation or movement RESPIRATORY: Breath sounds equal bilaterally, no wheezes rales or rhonchi. ABDOMEN: Soft, nontender. Normoactive bowel sounds all 4 quadrants. No guarding or rebound. EXTREMITIES: Normal range of motion, no clubbing or edema. Neurovascularly intact NEUROLOGICAL: Alert and oriented x4.Normal gait and speech. SKIN: Warm, dry, no laceration, no petechiae, no rashes or lesions. Course Orders Ordered: ED Orders 12/26/21 12:37 EKG-12 Lead Stat 12/26/21 12:41 Trop I [Troponin I] Stat Vital Signs Vital signs: Vital Signs - 8 hr 12/26/21 12:30 12/26/21 13:00 05/05/22 13:01 Pulse Rate 71 79 73 Respiratory Rate 23 22 24 Blood Pressure 144/83 H 152/78 H Pulse Oximetry 98 96 96 12/26/21 13:30 12/26/21 14:00 12/26/21 14:30 Pulse Rate 59 L 74 88 Respiratory Rate 17 18 24 Blood Pressure 140/74 111/65 120/78 Pulse Oximetry 96 95 95 12/26/21 15:00 Pulse Rate 69 Respiratory Rate 17 Blood Pressure 156/76 H Pulse Oximetry 96 MDM - Chest Pain Lab Data Result diagrams: 12/26/21 10:30 12/26/21 10:30 Labs: Lab Results 12/26/21 12/26/21 12/26/21 Range/Units 10:30 10:30 10:30 WBC 10.0 (4.5-11.0) X10^3/uL RBC 5.03 (4.5-5.9) X10^6/uL Hgb 15.6 (13.5-17.5) g/dL Hct 45.9 (41-53) % MCV 91.1 (80-100) fL MCH 31.0 (26-34) PG MCHC 34.1 (30-36) % RDW 13.8 (11.6-14.8) % Plt Count 215 (150-400) X10^3/uL Neut % (Auto) 78.1 H (50-75) % Lymph % (Auto) 12.7 L (25-40) % Mcpherson % (Auto) 8.5 (3-14) % Eos % (Auto) 0.3 L (2-4) % Baso % (Auto) 0.4 (0-2) % Neut # (Auto) 7800 H (4282-3842) /uL Lymph # (Auto) 1300 (0093-3999) /uL Mcpherson # (Auto) 800 (0-900) /uL Eos # (Auto) 0 (0-450) /uL Baso # (Auto) 0 (0-100) /uL PT 11.1 (10.1-12.7) SECONDS INR 1.0 (0.9-1.3) APTT 31 (26.4-36.2) SECONDS Sodium 141 (137-145) mmol/L Potassium 4.2 (3.4-5.1) mmol/L Chloride 108 H (98-107) mmol/L Carbon Dioxide 24 (22-32) mmol/L BUN 15 (9-20) mg/dL Creatinine 0.85 (0.66-1.25) mg/dL Estimated GFR > 60 (>60) mL/min BUN/Creatinine Ratio 17.6 (6-22) Glucose 105 (80-110) mg/dL Calcium 8.9 (8.4-10.2) mg/dL Magnesium 2.1 (1.6-2.3) mg/dL Total Bilirubin 1.1 (0.2-1.3) mg/dL AST 36 (17-59) IU/L ALT 25 (<50) IU/L Alkaline Phosphatase 98 (38-126) U/L Total Creatine Kinase 79 (55-170) U/L CK-MB (CK-2) TNP CK-MB (CK-2) Rel Index TNP Troponin I < 0.012 (0.01-0.034) ng/mL Total Protein 7.5 (6.3-8.2) g/dL Albumin 4.5 (3.5-5.0) g/dL Globulin 3.0 (1.7-4.1) g/dL Albumin/Globulin Ratio 1.5 (1.0-2.8) Lipase 71 (23-300) U/L // Range/Units 12:41 WBC (4.5-11.0) X10^3/uL RBC (4.5-5.9) X10^6/uL Hgb (13.5-17.5) g/dL Hct (41-53) % MCV (80-100) fL MCH (26-34) PG MCHC (30-36) % RDW (11.6-14.8) % Plt Count (150-400) X10^3/uL Neut % (Auto) (50-75) % Lymph % (Auto) (25-40) % Mcpherson % (Auto) (3-14) % Eos % (Auto) (2-4) % Baso % (Auto) (0-2) % Neut # (Auto) (2679-9631) /uL Lymph # (Auto) (1695-4555) /uL Mcpherson # (Auto) (0-900) /uL Eos # (Auto) (0-450) /uL Baso # (Auto) (0-100) /uL PT (10.1-12.7) SECONDS INR (0.9-1.3) APTT (26.4-36.2) SECONDS Sodium (137-145) mmol/L Potassium (3.4-5.1) mmol/L Chloride (98-107) mmol/L Carbon Dioxide (22-32) mmol/L BUN (9-20) mg/dL Creatinine (0.66-1.25) mg/dL Estimated GFR (>60) mL/min BUN/Creatinine Ratio (6-22) Glucose (80-110) mg/dL Calcium (8.4-10.2) mg/dL Magnesium (1.6-2.3) mg/dL Total Bilirubin (0.2-1.3) mg/dL AST (17-59) IU/L ALT (<50) IU/L Alkaline Phosphatase (38-126) U/L Total Creatine Kinase (55-170) U/L CK-MB (CK-2) CK-MB (CK-2) Rel Index Troponin I 0.019 (0.01-0.034) ng/mL Total Protein (6.3-8.2) g/dL Albumin (3.5-5.0) g/dL Globulin (1.7-4.1) g/dL Albumin/Globulin Ratio (1.0-2.8) Lipase (23-300) U/L Imaging Data Chest x-ray: Radiologist's Impression: Reynaldo Wu MR#: [id number] : 1950 Acct:[id number] Age/Sex: 71 / M Date of Service: 12/26/21 Loc: ED Accession Number: [id number] ?? Procedure: XR chest 1V Ordering Provider: Lizeth Monterroso D.O. PROCEDURE:? XR CHEST 1V ? INDICATIONS:? chest pain ? TECHNIQUE:? One view of the chest was acquired.? ? COMPARISON:? [facility], , XR CHEST 1V, 03/17/2021, 20:59. ? FINDINGS:? ? Surgical changes and devices:? Median sternotomy wires are present and appear intact. ? Lungs and pleura:? Lungs are clear.? No pleural effusions or pneumothorax.? ? Mediastinum:? Mediastinal contours appear normal.? Heart size is normal.? ? Bones and chest wall:? No suspicious bony lesions.? Overlying soft tissues appear unremarkable.? ? IMPRESSION:? Stable radiographic evaluation of the chest without acute cardiopulmonary abnormalities or focal airspace disease. ? ? ? Dictated by: Ed Ramsey M.D. on 12/26/2021 at 11:18 ?? ECG Data Interpretation: Sinus rhythm extremely low voltage and some bleeding is right bundle-branch block noted difficult to assess for ST depression or T-wave inversion EKG 2 normal sinus rhythm rate 70 p.r. interval 172 QRS 162 QTC 479 right bundle-branch block no ST changes similar to prior MDM Narrative Medical decision making narrative: Patient had some chest heaviness which felt like his pericarditis he actually describes some pleuritic pain of pain with inspiration as well. It does not really seem to be positional he does not have significant ST elevations or IA depressions not necessarily consistent with pericarditis. However his pain is completely improved with ibuprofen. He previously had an echocardiogram during his last admission he never actually had a stress test. Discussion with patient of admission versus going home. At this time patient would like to go he understands that he needs a stress test and he also understands he needs return to the emergency department if he should have further chest pain I discussed stress test with patient's primary care provider who will work off from an outpatient perspective to get him a test to soon as possible. I discussed all findings with the patient, Education has been performed regarding treatment plan, diagnosis, warning signs and symptoms and all concerns have been addressed. Verbally agree with and understood all of the above. Discharge Plan Departure Patient Disposition: Home Clinical Impression: Chest pain Activity Restrictions/Additional Instructions: *You have been diagnosed with chest pain *What to do: You do need a stress test and echocardiogram. If you should have any new worsening or persistent pain please return to the emergency department any time by ambulance. I have called and spoken to her primary care provider who is setting up a stress test for you please call to follow-up on this. *Continue to take medications as directed *Follow up with your primary care provider in 2-3 days or call [phone] *Return to ER if you should have increasing chest pain palpitations heaviness or any new, worsening or concerning symptoms Prescriptions: No Action [OXYCODONE] tablet 5 mg PO PRN MDD 3 PRN (Reason: Back Pain) Qty: 0 0RF atorvastatin [Lipitor] 20 MG tablet 20 mg PO HS Qty: 0 0RF [COQ 10 ] capsule 100 mg PO DAILY Qty: 0 0RF lisinopril 10 mg tablet 10 mg PO DAILY 0RF gabapentin 300 mg capsule 300 mg PO QPM 0RF ibuprofen 200 MG capsule 800 mg PO Q8H 14 Days Qty: 90 0RF Referrals: Deborah Sanchez PA-C [Primary Care Provider] -
--- NOTE | 2021-12-26 12:50 | PC.NURSE ---
Information regarding pericarditis from Up to Date given per patient request.
[2021-12-26 13:11] LABS: Troponin I 0.019 ng/mL (0.01-0.034)
== END 2021-12-26 15:05 | disposition home or self-care (01) ==
PROVIDERS: Emergency Provider Emergency Medicine; PCP Student in an Organized Health Care Education/Training Program
DX: R07.9 Chest pain, unspecified (principal); I45.10 Unspecified right bundle-branch block
CPT/HCPCS: 36415; 71045; 80053; 82550; 83690; 83735; 84484; 85025; 85610; 85730; 93005; 93010; 99284

== ENCOUNTER → 2022-01-27 08:47 | Outpatient (CLI) | payer MEDICARE, SELFPAY ==
[2021-03-18 00:50] VITALS: BMI 26.6
[2022-01-27 11:39] LABS: COVID19 -Nasal RAPID Negative (Negative)
== END ==
PROVIDERS: PCP Student in an Organized Health Care Education/Training Program; Visit Provider Family Medicine Sleep Medicine
DX: Z20.822 Contact with and (suspected) exposure to COVID-19 (principal)
CPT/HCPCS: 87635

== ENCOUNTER → 2022-01-27 10:18 | Outpatient (CLI) | payer MEDICARE, SELFPAY ==
[2021-03-18 00:50] VITALS: BMI 26.6
--- NOTE | 2022-01-27 | DI.NM.S_ITS ---
PROCEDURE: NM KWADWO PERF SPECT REST & STR Rest and exercise myocardial perfusion SPECT with gated imaging and ejection fraction RADIOPHARMACEUTICAL: 24.6 mCi Tc-99m sestamibi IV at rest and 24.4 mCi Tc-99m sestamibi IV at peak exercise. A 6-acl-wbyguape was performed. INDICATIONS: Chest pain, unspecified TECHNIQUE: Radiopharmaceutical was injected at peak stress test, and also at rest. SPECT images were obtained. SPECT myocardial perfusion images were displayed in short axis, horizontal long axis, and vertical long axis views. Gated images were reviewed using Dang Le software. COMPARISON: None. CARDIAC STRESS: A standard Billy treadmill exercise tolerance test was performed by the patient under the supervision of an attending staff. The patient exercised for 6 minutes and 35 seconds; 7.0 METS; functional aerobic impairment (CHRISSY) is +2%. Hemodynamic data: There is normal blood pressure and heart rate response to exercise stress. Patient achieved 109% of maximum predicted heart rate at peak exercise. Symptoms: Patient confirmed chest pain during exercise that resolved 2 minutes into recovery. EKG: No diagnostic EKG changes of ischemia; no ectopy. FINDINGS: Raw data: There is good myocardial labeling by radiotracer. No significant motion artifacts. Qatf-pw-qxore ratio is 0.38 (normal is less than 0.38 for sestamibi tracer, and less than 0.50 for thallium tracer). Left ventricle function: Gated images demonstrate normal left ventricle wall thickening. No segmental wall motion abnormality. No transient ischemic dilation; TID is 0.84 (normal less than 1.3). The left ventricle resting end-diastolic volume is 119 mL. Left ventricle stress ejection fraction is 70%; normal values are above 45%. Myocardial perfusion: There is normal distribution of activity in the left and right ventricular myocardium. No fixed or reversible perfusion defects. IMPRESSION: No evidence of exercise-induced ischemia on ECG or SPECT imaging. Normal ejection fraction. Normal exercise capacity however patient confirmed exercise-induced chest pain. Normal blood pressure response to exercise, max BP 192/100. Dictated by: Tessa Garcia D.O. on 01/28/2022 at 15:58 Approved by: Tessa Garcia D.O. on 01/28/2022 at 16:01
[2022-01-27 08:36] VITALS: BMI 26.6
== END ==
PROVIDERS: PCP Student in an Organized Health Care Education/Training Program; Referring Provider Student in an Organized Health Care Education/Training Program; Visit Provider Student in an Organized Health Care Education/Training Program
DX: R07.9 Chest pain, unspecified (principal); Z20.822 Contact with and (suspected) exposure to COVID-19
CPT/HCPCS: 78452; 87635; 93017; C9803; A9502

== ENCOUNTER → 2022-04-07 10:09 | Outpatient (CLI) | payer MEDICARE, SELFPAY ==
[2022-01-27 08:36] VITALS: BMI 26.6
--- NOTE | 2022-04-07 | DI.RAD.S_ITS ---
PROCEDURE: XR SHOULDER RT MIN 2V INDICATIONS: chronic right shoulder pain TECHNIQUE: 3 views of the shoulder were acquired. COMPARISON: None. FINDINGS: Bones: Mild degenerative changes of the acromioclavicular joint No fractures or dislocations. No suspicious bony lesions. Visualized ribs appear intact. Soft tissues: No suspicious soft tissue calcifications. IMPRESSION: 1. Degenerative changes of the acromioclavicular joint. 2. No acute radiographic abnormality. If pain persists with conservative management consider cross-sectional imaging with MRI or CT. Dictated by: Abdias Brown M.D. on 04/07/2022 at 14:37 Approved by: Abdias Brown M.D. on 04/07/2022 at 14:46
== END ==
PROVIDERS: PCP Student in an Organized Health Care Education/Training Program; Referring Provider Student in an Organized Health Care Education/Training Program; Visit Provider Student in an Organized Health Care Education/Training Program
DX: M25.511 Pain in right shoulder (principal); G89.29 Other chronic pain
CPT/HCPCS: 73030

== ENCOUNTER → 2023-11-10 08:59 | Outpatient (CLI) | payer MEDICARE, SELFPAY ==
[2022-01-27 08:36] VITALS: BMI 26.6
--- NOTE | 2023-11-10 09:00 | DI.MRI.S_ITS ---
PROCEDURE: MR LUMBAR SPINE WO CON INDICATIONS: Radiculopathy, lumbar region TECHNIQUE: Noncontrast sagittal T1 spin echo and T2 fast echo, sagittal STIR, and T2 fast spin echo through the lumbar spine. In cases with scoliosis, additional coronal T2 fast spin echo may be performed. COMPARISON: CT, L-SPINE W/O CONTRAST, 02/02/2014, 11:20. FINDINGS: Image quality: Excellent. Alignment and Curvature: Trace retrolisthesis of L2 on L3, L3 on L4. Left posterior fusion is present at L5-S1. Bone Marrow: Marrow is of normal overall signal. Mild reactive endplate changes at L3-4 as well as T12-L1. There is increased T1 and T2 signal at L3 most suggestive of hemangioma. No acute vertebral body compression fractures. Spinal Cord: Conus medullaris terminates at the L1 level. Visualized cord demonstrates normal signal and size. Paraspinous Soft Tissues: No paravertebral masses. Discs: Multilevel moderate to severe disc desiccation. T12-L1: Mild disc bulge with mild spinal stenosis. Minimal to mild bilateral foraminal narrowing on the right. L1-L2: Mild disc bulge with minimal spinal stenosis. Minimal to mild left foraminal narrowing with facet and ligamentum flavum hypertrophy. L2-L3: Mild disc bulge including a left foraminal component. Moderate spinal stenosis. Moderate left and [id number] right foraminal narrowing with facet and ligamentum flavum hypertrophy. L3-L4: Left hemilaminectomy changes are present. No spinal stenosis. Moderate to severe left and moderate right foraminal narrowing with facet and ligamentum flavum hypertrophy. L4-L5: Left hemilaminectomy changes. No spinal stenosis. Moderate to severe right and moderate left foraminal narrowing with facet and ligamentum flavum hypertrophy. L5-S1: Mild disc bulge without spinal stenosis. Moderate to severe bilateral foraminal narrowing with facet and ligamentum flavum hypertrophy. IMPRESSION: L5-S1 fusion. Multilevel disc bulges. Multilevel foraminal narrowing most severe at L4-5, L5-S1 secondary to facet/ligamentum flavum arthropathy. Dictated by: Krissy Wright M.D. on 11/10/2023 at 12:24 Approved by: Krissy Wright M.D. on 11/10/2023 at 12:36
== END ==
LOC: MRI 09:00
PROVIDERS: PCP Student in an Organized Health Care Education/Training Program; Referring Provider Student in an Organized Health Care Education/Training Program; Visit Provider Student in an Organized Health Care Education/Training Program
DX: M51.16 Intervertebral disc disorders with radiculopathy, lumbar region (principal); M51.17 Intervertebral disc disorders with radiculopathy, lumbosacral region; M47.26 Other spondylosis with radiculopathy, lumbar region; M47.27 Other spondylosis with radiculopathy, lumbosacral region; M48.061 Spinal stenosis, lumbar region without neurogenic claudication; M48.07 Spinal stenosis, lumbosacral region; Z98.1 Arthrodesis status
CPT/HCPCS: 72148

== ENCOUNTER → 2024-01-15 15:44 | Outpatient (CLI) | payer MEDICARE, SELFPAY ==
[2022-01-27 08:36] VITALS: BMI 26.6
--- NOTE | 2024-01-15 15:48 | DI.RAD.S_ITS ---
PROCEDURE: XR LUMBAR SPINE 2-3V INDICATIONS: HIP PAIN TECHNIQUE: 3 views of the lumbar spine were acquired. COMPARISON: [facility], , L-SPINE 2-3 VIEWS, 11/09/2012, 13:29., MRI lumbar spine 11/10/2023 FINDINGS: Bones: 5 [id number] vertebrae are present. Status post left L5-S1 posterior fixation and intervertebral disc spacer. There is normal bony alignment. There is severe disc height loss, endplate sclerosis and osteophytosis at L3-L4 and L4-L5. Multilevel facet hypertrophy free. No vertebral body compression fractures. No suspicious bony lesions. Soft tissues: Overlying bowel gas pattern is normal. No suspicious soft tissue calcifications. IMPRESSION: No acute bony abnormality. Status post left L5-S1 posterior fixation with intervertebral disc spacer. Multilevel degenerative disc disease, worse at L3-L4 and L4-L5. Approved by: Yahaira Ring M.D.,Ph.D. on 01/15/2024 at 17:26
--- NOTE | 2024-01-15 15:48 | DI.RAD.S_ITS ---
PROCEDURE: XR HIP W PEL IF DONE LT 2V INDICATIONS: HIP PAIN TECHNIQUE: 2 views of the hip were acquired. COMPARISON: None. FINDINGS: Bones: No fractures or dislocations. No suspicious bony lesions. The visualized pelvic ring appears intact. Soft tissues: No suspicious soft tissue calcifications or masses. IMPRESSION: No acute bony abnormality. Approved by: Yahaira Ring M.D.,Ph.D. on 01/15/2024 at 17:27
== END ==
PROVIDERS: PCP Student in an Organized Health Care Education/Training Program; Referring Provider Physician Assistant; Visit Provider Physician Assistant
DX: M51.36 Other intervertebral disc degeneration, lumbar region (principal); M25.552 Pain in left hip
CPT/HCPCS: 72100; 73502